=== PATIENT | female | born 1945 | race Caucasian/White ===

== ENCOUNTER 2020-06-22 18:20 | Inpatient (IN) | payer MEDICARE ==
[2020-06-22 19:32] LABS: BASOPHIL 0.3 % (0-2); EOSINOPHIL 1.1 % (0-7); HCT 41.3 % (37.0-47.0); HGB 12.3 g/dl (12.5-16.0); LYMPHOCYTE 17.1 % (15-48); MCH 25.9 pg (25.0-31.0); MCHC 29.8 g/dL (32.0-36.0); MCV 87.1 fL (78.0-100.0); MONOCYTE 10.5 % (0-12); MPV 10.6 fL (6.0-9.5); NEUTROPHIL 70.2 % (41-80); NRBC 0; PLT 361 K/uL (150-400); RBC 4.74 M/uL (4.20-5.40); RDW 16.2 % (11.5-14.0); RETICULOCYTE COUNT 1.8 % (1.0-2.0); WBC 11.3 K/uL (4.0-10.5)
[2020-06-22 19:36] LABS: INR 1.05 (0.9-1.2)
[2020-06-22 19:37] LABS: PTT 32.1 SECONDS (22.2-34.7)
[2020-06-22 19:38] LABS: D-DIMER 1.44 ug/mLFEU (0.00-0.41)
[2020-06-22 19:56] LABS: PRO-BNP 246 pg/mL (<450)
[2020-06-22 19:58] LABS: ALBUMIN 2.8 g/dL (3.4-5.0); BILIRUBIN - TOTAL 0.2 mg/dL (0.2-1.0); BUN/CREAT RATIO (CALC) 19.3 RATIO; C-REACTIVE PROTEIN 6.6 mg/dL (<=0.90); CREATININE 0.83 mg/dL (0.51-0.95); POTASSIUM 3.9 mmol/L (3.5-5.1); TOTAL PROTEIN 7.8 g/dL (6.4-8.2)
[2020-06-22 20:00] LABS: FLU B NEGATIVE B (NEGATIVE B)
[2020-06-22 20:12] LABS: LACTIC ACID 1.4 mmol/L (0.4-1.9)
[2020-06-23] MEDS ORDERED: ZOLOFT100 MG PO (00:28)
[2020-06-23] MEDS ORDERED: LASIX20 MG PO (00:28)
[2020-06-23] MEDS ORDERED: ZOCOR40 MG PO (00:28)
[2020-06-23] MEDS ORDERED: AMLODIPINE BESYL5 MG PO (00:28)
[2020-06-23] MEDS ORDERED: IBUPROFEN800 M1 PO (00:29)
[2020-06-23] MEDS ORDERED: KLOR-CON 1010 MEQ PO (00:29)
[2020-06-23 14:29] LABS: BILIRUBIN NEGATIVE (NEGATIVE); BLOOD TRACE-INTACT Ery/uL (NEGATIVE); CLARITY CLEAR (CLEAR); COLOR YELLOW (YELLOW); GLUCOSE (U) NORMAL (NORMAL); LEUKOCYTES 1+ Leu/uL (NEGATIVE); NITRITE NEGATIVE (NEGATIVE); PROTEIN NEGATIVE (NEGATIVE); UROBILINOGEN 0.2 mg/dL (0.2-1.0); pH 5.5 (5.0-9.0)
[2020-06-23 14:38] LABS: BACTERIA 1+; URINARY RBC RARE
[2020-06-24 05:03] LABS: BASOPHIL 0.2 % (0-2); HCT 40.8 % (37.0-47.0); HGB 11.9 g/dl (12.5-16.0); LYMPHOCYTE 15.6 % (15-48); MCH 25.4 pg (25.0-31.0); MCHC 29.2 g/dL (32.0-36.0); MCV 87.2 fL (78.0-100.0); MONOCYTE 9.8 % (0-12); MPV 10.4 fL (6.0-9.5); NRBC 0; PLT 324 K/uL (150-400); RBC 4.68 M/uL (4.20-5.40); RDW 16.3 % (11.5-14.0)
[2020-06-24 05:31] LABS: BUN/CREAT RATIO (CALC) 22.3 RATIO; CREATININE 0.94 mg/dL (0.51-0.95); POTASSIUM 3.6 mmol/L (3.5-5.1)
[2020-06-25] MEDS ORDERED: PANTOPRAZOLE SO40 MG PO (13:33)
[2020-06-25] MEDS ORDERED: AZITHROMYCIN250 MG PO (13:33)
[2020-06-25] MEDS ORDERED: PROVENTIL HFA6.7 GM INH (13:33)
[2020-06-25] MEDS ORDERED: FLORANEX TABLE1 EACH PO (13:33)
[2020-06-25] MEDS ORDERED: COREG 3.125M3.125 MG PO (13:33)
[2020-06-25] MEDS ORDERED: LASIX40 MG PO (13:33)
[2020-06-25] MEDS ORDERED: KLOR-CON 1010 MEQ PO (13:33)
[2020-06-25] MEDS ORDERED: CEFDINIR300 MG PO (13:33)
[2020-06-25] MEDS ORDERED: MEDROL 4MG DOSEP4 MG PO (13:33)
[2020-06-25] MEDS ORDERED: HOSPITAL BED XX (13:41)
--- NOTE | 2020-06-25 14:55 | NUR ---
06/25/2020 Ms. Corado has home 02, c-pap, w/c, rw, 3in1, and s.chair. She has requested a hospital bed. A referral was made to [facility] per [facility] order. A referral was made to [facility] for HH per patient choice.
== END 2020-06-25 16:20 | disposition home health service (06) | DRG 291 ==
LOC: FER 18:20 → FTCU 22:45
PROVIDERS: Emergency Medicine; Hospitalist; ADMIT Internal Medicine
DX: I11.0 Hypertensive heart disease with heart failure (principal); J18.9 Pneumonia, unspecified organism; J96.01 Acute respiratory failure with hypoxia; J44.0 Chronic obstructive pulmonary disease with (acute) lower respiratory infection; N39.0 Urinary tract infection, site not specified; J44.1 Chronic obstructive pulmonary disease with (acute) exacerbation; Z68.42 Body mass index [BMI] 45.0-49.9, adult; I50.33 Acute on chronic diastolic (congestive) heart failure; J20.9 Acute bronchitis, unspecified; Z77.22 Contact with and (suspected) exposure to environmental tobacco smoke (acute) (chronic); F32.9 Major depressive disorder, single episode, unspecified; E78.5 Hyperlipidemia, unspecified; Z20.828 Contact with and (suspected) exposure to other viral communicable diseases; G47.33 Obstructive sleep apnea (adult) (pediatric); E66.01 Morbid (severe) obesity due to excess calories; Z99.81 Dependence on supplemental oxygen; Z85.3 Personal history of malignant neoplasm of breast; Z79.899 Other long term (current) drug therapy
CPT/HCPCS: 36415; 36600; 71046; 80048; 80053; 80061; 81001; 82728; 82803; 83605; 83615; 83735; 83880; 84145; 84484; 85025; 85379; 85610; 85730; 86140; 87804; 87899; 93005; 94640; 94660; 96372; J0696; J1650; J1940; J7512; U0002

== ENCOUNTER 2021-06-07 18:21 | Inpatient (IN) | payer MEDICARE ==
[~2021-06-07] VITALS: Ht 157.5 cm; Wt 110.7 kg
[~2021-06-07 18:21] MED LIST: AMLODIPINE BESYL5 MG PO; AZITHROMYCIN250 MG PO; CEFDINIR300 MG PO; COREG 3.125M3.125 MG PO; FLORANEX TABLE1 EACH PO; HOSPITAL BED XX; IBUPROFEN800 M1 PO; KLOR-CON 1010 MEQ PO; LASIX20 MG PO; LASIX40 MG PO; MEDROL 4MG DOSEP4 MG PO; PANTOPRAZOLE SO40 MG PO; PROVENTIL HFA6.7 GM INH; ZOCOR40 MG PO; ZOLOFT100 MG PO
[2021-06-07 19:35] LABS: BASOPHIL 0.2 % (0-2); EOSINOPHIL 1.6 % (0-7); HCT 34.2 % (37.0-47.0); HGB 10.3 g/dl (12.5-16.0); LYMPHOCYTE 19.5 % (15-48); MCH 25.5 pg (25.0-31.0); MCHC 30.1 g/dL (32.0-36.0); MCV 84.7 fL (78.0-100.0); MONOCYTE 11.3 % (0-12); MPV 10.5 fL (6.0-9.5); NRBC 0; PLT 344 K/uL (150-400); RBC 4.04 M/uL (4.20-5.40); RDW 17.2 % (11.5-14.0); WBC 9.7 K/uL (4.0-10.5)
[2021-06-07 19:49] LABS: ALBUMIN 2.5 g/dL (3.4-5.0); BILIRUBIN - TOTAL 0.2 mg/dL (0.2-1.0); BUN/CREAT RATIO (CALC) 19.1 RATIO; C-REACTIVE PROTEIN 10.8 mg/dL (<=0.90); CREATININE 0.89 mg/dL (0.51-0.95); GLOBULIN (CALCULATION) 4.5 g/dL; POTASSIUM 3.4 mmol/L (3.5-5.1)
[2021-06-07 19:54] LABS: PRO-BNP 376 pg/mL (<450)
[2021-06-07 19:55] LABS: LACTIC ACID 0.5 mmol/L (0.4-1.9)
[2021-06-07 20:45] LABS: CORONAVIRUS 2019 SARS-COV-2 NEGATIVE (NEGATIVE); INFLUENZA A NAA NEGATIVE (NEGATIVE)
[2021-06-08 00:22] LABS: BILIRUBIN NEGATIVE (NEGATIVE); BLOOD TRACE-INTACT Ery/uL (NEGATIVE); CLARITY CLEAR (CLEAR); COLOR YELLOW (YELLOW); GLUCOSE (U) NORMAL (NORMAL); LEUKOCYTES 2+ Leu/uL (NEGATIVE); NITRITE NEGATIVE (NEGATIVE); PROTEIN NEGATIVE (NEGATIVE); UROBILINOGEN 0.2 mg/dL (0.2-1.0)
[2021-06-08 00:47] LABS: BACTERIA 1+; URINARY RBC RARE
[2021-06-08] MEDS ORDERED: LASIX40 MG PO (02:40)
[2021-06-08] MEDS ORDERED: ADVIL200 M1 PO (02:41)
[2021-06-08] MEDS ORDERED: KLOR-CON M 1010 MEQ PO (02:43)
[2021-06-08] MEDS ORDERED: VITAMIN D325 MC2 PO (02:45)
--- NOTE | 2021-06-08 03:17 | NUR ---
PATIENT'S MEDICATION IS LOCKED IN MEDICATION CART.
[2021-06-08 07:12] LABS: BASOPHIL 0.2 % (0-2); EOSINOPHIL 1.7 % (0-7); HCT 36.6 % (37.0-47.0); HGB 11.2 g/dl (12.5-16.0); LYMPHOCYTE 20.8 % (15-48); MCH 25.4 pg (25.0-31.0); MCHC 30.6 g/dL (32.0-36.0); MONOCYTE 11.1 % (0-12); NEUTROPHIL 65.9 % (41-80); NRBC 0; PLT 331 K/uL (150-400); RBC 4.41 M/uL (4.20-5.40); RDW 17.1 % (11.5-14.0); WBC 9.1 K/uL (4.0-10.5)
[2021-06-08 07:32] LABS: BUN/CREAT RATIO (CALC) 15.9 RATIO; CREATININE 0.88 mg/dL (0.51-0.95); POTASSIUM 3.1 mmol/L (3.5-5.1)
[2021-06-09 06:49] LABS: BASOPHIL 0.1 % (0-2); EOSINOPHIL 1.1 % (0-7); HCT 36.7 % (37.0-47.0); HGB 10.9 g/dl (12.5-16.0); LYMPHOCYTE 16.7 % (15-48); MCH 25.4 pg (25.0-31.0); MCHC 29.7 g/dL (32.0-36.0); MCV 85.5 fL (78.0-100.0); MONOCYTE 9.4 % (0-12); MPV 9.2 fL (6.0-9.5); NEUTROPHIL 72.2 % (41-80); NRBC 0; PLT 329 K/uL (150-400); RBC 4.29 M/uL (4.20-5.40); RDW 17.2 % (11.5-14.0); WBC 8.5 K/uL (4.0-10.5)
[2021-06-09 07:06] LABS: BUN/CREAT RATIO (CALC) 13.2 RATIO; CREATININE 0.91 mg/dL (0.51-0.95); MAGNESIUM 2.2 mg/dL (1.8-2.4); POTASSIUM 3.3 mmol/L (3.5-5.1)
[2021-06-10 06:01] LABS: BASOPHIL 0.1 % (0-2); EOSINOPHIL 2.5 % (0-7); HCT 33.6 % (37.0-47.0); MCH 25.3 pg (25.0-31.0); MCHC 29.8 g/dL (32.0-36.0); MCV 85.1 fL (78.0-100.0); MONOCYTE 9.6 % (0-12); MPV 9.9 fL (6.0-9.5); NEUTROPHIL 69.4 % (41-80); NRBC 0; PLT 302 K/uL (150-400); RBC 3.95 M/uL (4.20-5.40); RDW 17.1 % (11.5-14.0); WBC 7.7 K/uL (4.0-10.5)
[2021-06-10 06:20] LABS: BUN/CREAT RATIO (CALC) 8.6 RATIO; CREATININE 0.81 mg/dL (0.51-0.95); MAGNESIUM 1.9 mg/dL (1.8-2.4); POTASSIUM 3.6 mmol/L (3.5-5.1)
--- NOTE | 2021-06-10 19:36 | NUR ---
1250 - Pt to CT for interventional radiology procedure to drain abd/pelvic abscess. Pt states she has a hx of CHF, wears 2L NC at home, has an allergy to demerol. Pt denies the use of any blood thinners, midline noted to LISA. BP 129/93 (102), 85 HR, 97% 2L NC. 1257 - Pt positioned on CT table, [place] water treatment technician, Dr. Dickinson and this RN at bedside with patient, time out performed per water treatment technician, all in agreeance that this is the right patient and right procedure, pt also agrees. Pt c/o SOA when lying flat, O2 increased to 6L NC, pt states that in past she has had to be placed on NRB for any procedures that would require her to lie flat. BP 132/63 (90), 79 HR, 95% 6L NC. Pt c/o pain although local was utilized, VO obtained for 1mg IV ativan & 50mcg IV fentanyl. 1308 - 1mg IV ativan administered. 1310 - 50 mcg IV fentanyl administered. Pt reported a decrease in pain and is much more relaxed. 1320 - Pt O2 dropped to 87% on 6L NC, pt placed on NRB 15L, BP 138/65 (94), 81 HR, 99 % NRB. 1327 - Purulent, sangioneous drainage 4 mL noted from abscess. BP 144/68 (98), 86 HR, 99% NRB. Placement checked by CT scan. 1328 - Good placement, guide-wire placed and dilators utilized. 1338 - Drain placed and secured by water treatment technician. Pt tolerated procedure well. 1341 - BP 151/86 (109), 93 HR, 99% NRB. 1349 - Pt ready to be tx back to [facility] room, placed back on 2L NC, 96%. 1320
[2021-06-11 07:33] LABS: BASOPHIL 0.2 % (0-2); EOSINOPHIL 1.7 % (0-7); HCT 35.6 % (37.0-47.0); HGB 10.6 g/dl (12.5-16.0); LYMPHOCYTE 16.3 % (15-48); MCH 25.5 pg (25.0-31.0); MCHC 29.8 g/dL (32.0-36.0); MCV 85.8 fL (78.0-100.0); MONOCYTE 8.8 % (0-12); MPV 10.3 fL (6.0-9.5); NEUTROPHIL 72.7 % (41-80); NRBC 0; PLT 322 K/uL (150-400); RBC 4.15 M/uL (4.20-5.40); RDW 17.2 % (11.5-14.0)
[2021-06-11 08:01] LABS: CREATININE 0.83 mg/dL (0.51-0.95); MAGNESIUM 1.9 mg/dL (1.8-2.4); POTASSIUM 3.7 mmol/L (3.5-5.1)
--- NOTE | 2021-06-11 12:50 | NUR ---
06/11 Ms. Corado lives alone. She has 4 children. She has: CPAP, 02 at 2 L, portable, hospital bed, wc, 3in1, and s. chair. A referral was made to [facility] per patient choice.
[2021-06-11 15:07] LABS: BILIRUBIN NEGATIVE (NEGATIVE); BLOOD 1+ Ery/uL (NEGATIVE); COLOR YELLOW (YELLOW); GLUCOSE (U) NORMAL (NORMAL); LEUKOCYTES 2+ Leu/uL (NEGATIVE); NITRITE NEGATIVE (NEGATIVE); PROTEIN NEGATIVE (NEGATIVE); UROBILINOGEN 0.2 mg/dL (0.2-1.0)
[2021-06-11 15:10] LABS: CLARITY HAZY (CLEAR)
[2021-06-11 15:31] LABS: BACTERIA TRACE; CALCIUM OXALATE CRYSTALS MODERATE
[2021-06-11 15:32] LABS: SQUAMOUS EPITHELIAL CELLS 20-50; YEAST PRESENT
[2021-06-12 06:54] LABS: BASOPHIL 0.1 % (0-2); EOSINOPHIL 2.9 % (0-7); HCT 33.8 % (37.0-47.0); HGB 10.1 g/dl (12.5-16.0); LYMPHOCYTE 10.7 % (15-48); MCH 25.8 pg (25.0-31.0); MCHC 29.9 g/dL (32.0-36.0); MCV 86.2 fL (78.0-100.0); MONOCYTE 8.4 % (0-12); MPV 9.8 fL (6.0-9.5); NEUTROPHIL 76.9 % (41-80); NRBC 0; PLT 299 K/uL (150-400); RBC 3.92 M/uL (4.20-5.40); RDW 17.4 % (11.5-14.0); WBC 10.2 K/uL (4.0-10.5)
[2021-06-12 07:25] LABS: BUN/CREAT RATIO (CALC) 10.4 RATIO; CREATININE 0.96 mg/dL (0.51-0.95); POTASSIUM 3.9 mmol/L (3.5-5.1)
--- NOTE | 2021-06-12 12:17 | NUR ---
PER ORDERS PT AMBULATED IN SOTO WITH ON ROOM AIR AND CHECK O2 SATS. PT AT REST O2 95% ON ROOM AIR. PT O2 SAT IN SOTO WAY 80%
--- NOTE | 2021-06-12 16:48 | NUR ---
06/12 [facility] was notified of discharge. Report given to MS VANESSA Andrews.
[2021-06-12] MEDS ORDERED: AUGMENTIN 875-1 EACH PO (16:56)
== END 2021-06-12 18:27 | disposition home health service (06) | DRG 391 ==
LOC: FER 18:21 → FMS 23:51
PROVIDERS: Emergency Medicine Emergency Medical Services; Nurse Practitioner; Nurse Practitioner Acute Care; ADMIT Internal Medicine
PROC: 05HY33Z Insertion of Infusion Device into Upper Vein, Percutaneous Approach (ICD-10-PCS; principal; 2021-06-07)
PROC: 0W9J30Z Drainage of Pelvic Cavity with Drainage Device, Percutaneous Approach (ICD-10-PCS; 2021-06-10)
DX: K57.20 Diverticulitis of large intestine with perforation and abscess without bleeding (principal); J96.21 Acute and chronic respiratory failure with hypoxia; I50.33 Acute on chronic diastolic (congestive) heart failure; J18.9 Pneumonia, unspecified organism; J98.11 Atelectasis; I13.0 Hypertensive heart and chronic kidney disease with heart failure and stage 1 through stage 4 chronic kidney disease, or unspecified chronic kidney disease; B37.49 Other urogenital candidiasis; E66.2 Morbid (severe) obesity with alveolar hypoventilation; Z68.41 Body mass index [BMI] 40.0-44.9, adult; Z20.822 Contact with and (suspected) exposure to COVID-19; Z66 Do not resuscitate; E78.5 Hyperlipidemia, unspecified; E87.6 Hypokalemia; F32.A Depression, unspecified; D64.9 Anemia, unspecified; N18.2 Chronic kidney disease, stage 2 (mild); Z99.81 Dependence on supplemental oxygen; Z87.440 Personal history of urinary (tract) infections; Z85.3 Personal history of malignant neoplasm of breast; Z96.653 Presence of artificial knee joint, bilateral; Z90.49 Acquired absence of other specified parts of digestive tract; Z90.710 Acquired absence of both cervix and uterus; I25.2 Old myocardial infarction; Z90.12 Acquired absence of left breast and nipple; Z80.1 Family history of malignant neoplasm of trachea, bronchus and lung; Z82.49 Family history of ischemic heart disease and other diseases of the circulatory system; Z79.899 Other long term (current) drug therapy; Z88.8 Allergy status to other drugs, medicaments and biological substances
CPT/HCPCS: 36415; 36600; 71045; 71046; 71275; 75989; 80048; 80053; 81001; 82803; 83605; 83735; 83880; 84145; 84484; 85025; 85379; 86140; 87040; 87088; 93005; 94010; 94640; C9113; G0378; J0696; J1170; J1642; J1650; J1940; J2001; J2060; J2543; J3010; J3480; J7030; Q9967; U0002

== ENCOUNTER 2021-07-07 13:20 | Inpatient (IN) | payer MEDICARE ==
[~2021-07-07] VITALS: Ht 157.5 cm; Wt 114.8 kg
[~2021-07-07 13:20] MED LIST changes: +ADVIL200 M1 PO; +AUGMENTIN 875-1 EACH PO; +KLOR-CON M 1010 MEQ PO; +VITAMIN D325 MC2 PO
[2021-07-07 15:22] LABS: BASOPHIL 0.3 % (0-2); EOSINOPHIL 1.2 % (0-7); HCT 37.7 % (37.0-47.0); HGB 11.5 g/dl (12.5-16.0); LYMPHOCYTE 20.9 % (15-48); MCH 25.1 pg (25.0-31.0); MCHC 30.5 g/dL (32.0-36.0); MCV 82.3 fL (78.0-100.0); MONOCYTE 9.2 % (0-12); NEUTROPHIL 68.1 % (41-80); NRBC 0; PLT 346 K/uL (150-400); RBC 4.58 M/uL (4.20-5.40); RDW 17.4 % (11.5-14.0); WBC 9.8 K/uL (4.0-10.5)
[2021-07-07 15:41] LABS: BUN/CREAT RATIO (CALC) 22.2 RATIO; CREATININE 0.81 mg/dL (0.51-0.95); POTASSIUM 3.8 mmol/L (3.5-5.1)
[2021-07-07 15:55] LABS: BILIRUBIN NEGATIVE (NEGATIVE); BLOOD TRACE-INTACT Ery/uL (NEGATIVE); CLARITY CLEAR (CLEAR); GLUCOSE (U) TRACE mg/dL (NORMAL); LEUKOCYTES NEGATIVE Leu/uL (NEGATIVE); NITRITE POSITIVE (NEGATIVE); PROTEIN 2+ mg/dL (NEGATIVE); SPECIFIC GRAVITY 1.025 (1.001-1.030); pH 5.5 (5.0-9.0)
[2021-07-07 15:56] LABS: COLOR ORANGE (YELLOW)
[2021-07-07 16:03] LABS: BACTERIA 1+; URINARY RBC RARE
[2021-07-07 20:41] LABS: LACTIC ACID 0.4 mmol/L (0.4-1.9)
[2021-07-08 07:01] LABS: BASOPHIL 0.2 % (0-2); EOSINOPHIL 3.7 % (0-7); HGB 10.2 g/dl (12.5-16.0); LYMPHOCYTE 26.3 % (15-48); MCH 25.1 pg (25.0-31.0); MCV 83.7 fL (78.0-100.0); MONOCYTE 10.7 % (0-12); MPV 9.8 fL (6.0-9.5); NEUTROPHIL 58.9 % (41-80); NRBC 0; PLT 279 K/uL (150-400); RBC 4.06 M/uL (4.20-5.40); RDW 17.3 % (11.5-14.0)
[2021-07-08 07:24] LABS: BUN/CREAT RATIO (CALC) 15.7 RATIO; CREATININE 0.89 mg/dL (0.51-0.95); POTASSIUM 3.9 mmol/L (3.5-5.1)
[2021-07-08 13:00] LABS: INR 1.13 (0.9-1.2); PROTHROMBIN TIME 13.9 SECONDS (11.8-13.4)
[2021-07-08 17:17] LABS: IRON % SATURATION 15.3 %SAT (20-50)
--- NOTE | 2021-07-08 17:36 | NUR ---
1326 - INFORMED CONSENT OBTAINED FROM PT PER DR. ROSENBAUM. 1335 - PT AXOX4, POSITIONED ONTO CT TABLE AND INITIAL V/S OBTAINED, BP 135/71(96), 81 HR, 13 RR, 95% 2L NC, SR ON MONITOR WITH UNIFOCAL PVC's. PT O2 INCREASED TO 4L NC DUE TO INCREASED SOA WHILE LYING SUPINE, PT C/O PAIN TO LUMBAR SPINE. MD AWARE. 1348 - TIME-OUT PERFORMED PER CRYSTAL (REGISTERED NURSE STEP DOWN), PT AND STAFF IN AGREEANCE OF PROCEDURE. 1350 - MD EXPLAINED STEPS HE WENT ALONG, LOCALIZED AREA OF INSERTION NEEDLE INSERTED, IMAGING PERFORMED TO CHECK TRAJECTORY. 1354 - 127/61(88), 85 HR, 95% 4L NC, 13 RR, PT TOLERATING PROCEDURE WELL. 1405 - 135/80(102), 84 HR, 17 RR, 96% 4L NC. 1412 - AFTER ADVANCEMENT INTO ABSCESS POCKET MD ATTEMPTED TO OBTAIN SPECIMEN, UNSUCCESSFUL, IMAGING PERFORMED. 1417 - ADVANCEMENT INTO ABSCESS SUCCESSFUL AND SPECIMEN OBTAINED, THICK PURULENT DRAINAGE NOTED, AEROBIC/ANAEROBIC SPECIMENS COLLECTED. GUIDEWIRE ADVANCED TO PREPARE FOR DRAIN PLACEMENT. IMAGING PERFORMED TO ENSURE ADEQUATE COILING IN ABSCESS POCKET. 1425 - DILATORS USED AND IMAGING PERFORMED TO VERIFY PLACEMENT. 127/71(94), 86 HR, 22 RR, 95% 4L NC. PT CONTINUES TO TOLERATE WELL. 1427 - DRAIN PIECE INSERTED OVER DILATOR AND EXTERNAL DRAIN APPLIED AND SECURED. 127/71(94), 27 RR, 86 HR, 94% 4L NC. 1430 - PT ASSISTED TO DANGLE ON EDGE OF CT TABLE PT PLACED ON 2L NC. PT TOLERATED WELL. 130/65(93), 88 HR, 15 RR, 95% 2L NC. 1435 - PT TO BE TRANSPORTED BACK TO UNIT PER REGISTERED NURSE STEP DOWN.
[2021-07-09 06:07] LABS: BASOPHIL 0.1 % (0-2); EOSINOPHIL 0.9 % (0-7); HCT 34.7 % (37.0-47.0); HGB 10.3 g/dl (12.5-16.0); MCH 25.1 pg (25.0-31.0); MCHC 29.7 g/dL (32.0-36.0); MCV 84.6 fL (78.0-100.0); MONOCYTE 5.3 % (0-12); MPV 10.2 fL (6.0-9.5); NEUTROPHIL 79.5 % (41-80); NRBC 0; PLT 290 K/uL (150-400); RDW 17.4 % (11.5-14.0)
[2021-07-09 06:08] LABS: WBC 13.7 K/uL (4.0-10.5)
[2021-07-09 06:32] LABS: BUN/CREAT RATIO (CALC) 11.8 RATIO; CREATININE 1.02 mg/dL (0.51-0.95); POTASSIUM 3.7 mmol/L (3.5-5.1)
--- NOTE | 2021-07-09 16:06 | NUR ---
08/09/21 Ms. Corado lives alone, She has 4 supportive children. Ms. Corado reports to be I with ADLS and IADLS. Her children rune errand, provide transportation, and go to the grocery. Ms. Corado has a rw, codi, 02 at 2L, 3in1, s. chair, wc, and hospital bed. [facility] is current and have been notified of admission via [facility]. Please notifiy [facility] at [phone] if patient discharges over the weekend.
[2021-07-10 06:50] LABS: BASOPHIL 0.2 % (0-2); EOSINOPHIL 0.5 % (0-7); HCT 36.8 % (37.0-47.0); LYMPHOCYTE 16.6 % (15-48); MCH 25.3 pg (25.0-31.0); MCHC 29.9 g/dL (32.0-36.0); MCV 84.8 fL (78.0-100.0); MONOCYTE 6.5 % (0-12); MPV 9.9 fL (6.0-9.5); NEUTROPHIL 75.4 % (41-80); NRBC 0; PLT 281 K/uL (150-400); RBC 4.34 M/uL (4.20-5.40); RDW 17.3 % (11.5-14.0); RETICULOCYTE COUNT 1.1 % (1.0-2.0); WBC 16.8 K/uL (4.0-10.5)
[2021-07-10 07:17] LABS: IRON % SATURATION 5.6 %SAT (20-50)
[2021-07-10 07:55] LABS: BUN/CREAT RATIO (CALC) 13.3 RATIO; CREATININE 1.13 mg/dL (0.51-0.95); POTASSIUM 3.4 mmol/L (3.5-5.1)
[2021-07-10 08:40] LABS: FOLIC ACID (SERUM) 16.1 ng/mL (8.6-58.9)
[2021-07-10 15:12] LABS: BILIRUBIN NEGATIVE (NEGATIVE); BLOOD NEGATIVE Ery/uL (NEGATIVE); CLARITY CLEAR (CLEAR); COLOR YELLOW (YELLOW); GLUCOSE (U) NORMAL (NORMAL); LEUKOCYTES NEGATIVE Leu/uL (NEGATIVE); NITRITE NEGATIVE (NEGATIVE); PROTEIN TRACE (LOW) mg/dL (NEGATIVE); SPECIFIC GRAVITY 1.015 (1.001-1.030); UROBILINOGEN 0.2 mg/dL (0.2-1.0); pH 6.5 (5.0-9.0)
[2021-07-10 15:31] LABS: BACTERIA TRACE; MUCOUS TRACE
[2021-07-10 21:31] LABS: HGB 11.1 g/dl (12.5-16.0); MCH 25.3 pg (25.0-31.0); MCHC 30.8 g/dL (32.0-36.0); MPV 10.1 fL (6.0-9.5); RBC 4.39 M/uL (4.20-5.40); RDW 17.3 % (11.5-14.0); WBC 24.6 K/uL (4.0-10.5)
[2021-07-10 21:49] LABS: CREATININE 1.36 mg/dL (0.51-0.95); POTASSIUM 3.3 mmol/L (3.5-5.1)
[2021-07-11 04:18] LABS: BUN/CREAT RATIO (CALC) 12.1 RATIO; CREATININE 1.4 mg/dL (0.51-0.95); MAGNESIUM 1.7 mg/dL (1.8-2.4); POTASSIUM 3.4 mmol/L (3.5-5.1)
[2021-07-11 04:19] LABS: BASOPHIL 0.2 % (0-2); EOSINOPHIL 0.8 % (0-7); HCT 35.1 % (37.0-47.0); HGB 11.2 g/dl (12.5-16.0); LYMPHOCYTE 5.8 % (15-48); MCHC 31.9 g/dL (32.0-36.0); MCV 81.6 fL (78.0-100.0); MONOCYTE 5.1 % (0-12); MPV 10.3 fL (6.0-9.5); NEUTROPHIL 87.5 % (41-80); NRBC 0; PLT 347 K/uL (150-400); RDW 17.4 % (11.5-14.0); WBC 22.1 K/uL (4.0-10.5)
[2021-07-11 13:00] LABS: POTASSIUM 3.8 mmol/L (3.5-5.1)
[2021-07-11 13:02] LABS: MAGNESIUM 2.4 mg/dL (1.8-2.4)
[2021-07-12 06:17] LABS: BASOPHIL 0.1 % (0-2); EOSINOPHIL 1.2 % (0-7); HCT 27.2 % (37.0-47.0); HGB 8.7 g/dl (12.5-16.0); LYMPHOCYTE 8.5 % (15-48); MCH 25.6 pg (25.0-31.0); MPV 10.2 fL (6.0-9.5); NEUTROPHIL 83.2 % (41-80); NRBC 0; PLT 303 K/uL (150-400); RDW 17.2 % (11.5-14.0); WBC 16.8 K/uL (4.0-10.5)
[2021-07-12 06:49] LABS: ALBUMIN 1.4 g/dL (3.4-5.0); BILIRUBIN - TOTAL 0.5 mg/dL (0.2-1.0); BUN/CREAT RATIO (CALC) 21.5 RATIO; CREATININE 1.07 mg/dL (0.51-0.95); GLOBULIN (CALCULATION) 3.1 g/dL; MAGNESIUM 2.2 mg/dL (1.8-2.4); PHOSPHORUS 2.5 mg/dL (2.6-4.7); POTASSIUM 3.5 mmol/L (3.5-5.1); TOTAL PROTEIN 4.5 g/dL (6.4-8.2)
[2021-07-12 18:31] LABS: BASOPHIL 0.1 % (0-2); EOSINOPHIL 1.9 % (0-7); HCT 23.4 % (37.0-47.0); HGB 7.3 g/dl (12.5-16.0); LYMPHOCYTE 8.9 % (15-48); MCH 25.3 pg (25.0-31.0); MCHC 31.2 g/dL (32.0-36.0); MCV 81.3 fL (78.0-100.0); MPV 10.1 fL (6.0-9.5); NEUTROPHIL 83.3 % (41-80); NRBC 0; PLT 271 K/uL (150-400); RBC 2.88 M/uL (4.20-5.40); RDW 17.3 % (11.5-14.0); WBC 13.5 K/uL (4.0-10.5)
[2021-07-12 18:47] LABS: BUN/CREAT RATIO (CALC) 20.4 RATIO; CREATININE 0.98 mg/dL (0.51-0.95); POTASSIUM 3.3 mmol/L (3.5-5.1)
[2021-07-12 21:49] LABS: LACTIC ACID 0.7 mmol/L (0.4-1.9)
[2021-07-13 06:22] LABS: BASOPHIL 0.2 % (0-2); EOSINOPHIL 2.7 % (0-7); HCT 29.8 % (37.0-47.0); LYMPHOCYTE 9.9 % (15-48); MCHC 31.9 g/dL (32.0-36.0); MCV 81.4 fL (78.0-100.0); MONOCYTE 4.7 % (0-12); MPV 10.2 fL (6.0-9.5); NRBC 0; PLT 318 K/uL (150-400); RBC 3.66 M/uL (4.20-5.40); RDW 17.1 % (11.5-14.0); WBC 17.6 K/uL (4.0-10.5)
[2021-07-13 06:23] LABS: HGB 9.5 g/dl (12.5-16.0)
[2021-07-13 07:15] LABS: ALBUMIN 1.3 g/dL (3.4-5.0); BILIRUBIN - TOTAL 0.4 mg/dL (0.2-1.0); BUN/CREAT RATIO (CALC) 20.2 RATIO; CREATININE 0.94 mg/dL (0.51-0.95); GLOBULIN (CALCULATION) 4.3 g/dL; MAGNESIUM 2.1 mg/dL (1.8-2.4); PHOSPHORUS 2.5 mg/dL (2.6-4.7); POTASSIUM 3.5 mmol/L (3.5-5.1); TOTAL PROTEIN 5.6 g/dL (6.4-8.2)
[2021-07-14 06:01] LABS: BASOPHIL 0.3 % (0-2); EOSINOPHIL 3.8 % (0-7); HCT 28.1 % (37.0-47.0); HGB 8.8 g/dl (12.5-16.0); LYMPHOCYTE 12.8 % (15-48); MCH 25.9 pg (25.0-31.0); MCHC 31.3 g/dL (32.0-36.0); MCV 82.6 fL (78.0-100.0); MONOCYTE 6.2 % (0-12); MPV 10.4 fL (6.0-9.5); NEUTROPHIL 75.8 % (41-80); NRBC 0; PLT 326 K/uL (150-400); RDW 17.2 % (11.5-14.0); WBC 11.4 K/uL (4.0-10.5)
[2021-07-14 06:12] LABS: ALBUMIN 1.2 g/dL (3.4-5.0); BILIRUBIN - TOTAL 0.3 mg/dL (0.2-1.0); BUN/CREAT RATIO (CALC) 21.8 RATIO; CREATININE 0.78 mg/dL (0.51-0.95); MAGNESIUM 2.4 mg/dL (1.8-2.4); PHOSPHORUS 2.4 mg/dL (2.6-4.7); POTASSIUM 3.6 mmol/L (3.5-5.1); TOTAL PROTEIN 5.2 g/dL (6.4-8.2)
[2021-07-14 19:19] LABS: BUN/CREAT RATIO (CALC) 20.3 RATIO; CREATININE 0.74 mg/dL (0.51-0.95); POTASSIUM 4.2 mmol/L (3.5-5.1)
[2021-07-15 06:07] LABS: BASOPHIL 0.2 % (0-2); EOSINOPHIL 4.2 % (0-7); HGB 9.2 g/dl (12.5-16.0); LYMPHOCYTE 13.9 % (15-48); MCH 26.3 pg (25.0-31.0); MCHC 31.7 g/dL (32.0-36.0); MCV 82.9 fL (78.0-100.0); MONOCYTE 8.3 % (0-12); MPV 10.6 fL (6.0-9.5); NEUTROPHIL 71.5 % (41-80); NRBC 0; PLT 341 K/uL (150-400); RDW 17.2 % (11.5-14.0); WBC 10.4 K/uL (4.0-10.5)
[2021-07-15 06:28] LABS: ALBUMIN 1.2 g/dL (3.4-5.0); BILIRUBIN - TOTAL 0.2 mg/dL (0.2-1.0); BUN/CREAT RATIO (CALC) 19.5 RATIO; CREATININE 0.77 mg/dL (0.51-0.95); GLOBULIN (CALCULATION) 4.2 g/dL; MAGNESIUM 2.1 mg/dL (1.8-2.4); PHOSPHORUS 2.8 mg/dL (2.6-4.7); POTASSIUM 3.7 mmol/L (3.5-5.1); TOTAL PROTEIN 5.4 g/dL (6.4-8.2)
[2021-07-15 13:06] LABS: BILIRUBIN NEGATIVE (NEGATIVE); BLOOD NEGATIVE Ery/uL (NEGATIVE); CLARITY CLEAR (CLEAR); COLOR YELLOW (YELLOW); GLUCOSE (U) NORMAL (NORMAL); LEUKOCYTES NEGATIVE Leu/uL (NEGATIVE); NITRITE NEGATIVE (NEGATIVE); PROTEIN NEGATIVE (NEGATIVE); UROBILINOGEN 0.2 mg/dL (0.2-1.0)
--- NOTE | 2021-07-15 13:46 | NUR ---
PATIENT TRANSPORTED TO CT VIA BED ON DISPATCHER SHIP PILOT, RT BAGGING PATIETN WITH AMBU BAG, VENT TRANSPORTED TO CT. PATIENT TOLERATED WELL. PATIENT PLACED ON VENT FOR CT TEST. REMOVED FROM VENT POST TEST, AND TRANSPORTED BACK TO FLOOR VIA 2 RN'S AND RT. PATIENTS VITALS STABLE THROUGHOUT CT TEST. VITALS WHEN RETURNED TO FLOOR FOLLOWS: BP 108/47 (67), HR 57, O2 100% ON VENT FIO2 40%. PATIENT TOLERATED TRANSPORT WELL.
[2021-07-16 05:42] LABS: BASOPHIL 0.4 % (0-2); EOSINOPHIL 5.2 % (0-7); HCT 30.9 % (37.0-47.0); HGB 9.8 g/dl (12.5-16.0); MCH 26.1 pg (25.0-31.0); MCHC 31.7 g/dL (32.0-36.0); MCV 82.2 fL (78.0-100.0); MONOCYTE 6.7 % (0-12); MPV 10.4 fL (6.0-9.5); NEUTROPHIL 73.6 % (41-80); NRBC 0; PLT 379 K/uL (150-400); RBC 3.76 M/uL (4.20-5.40); RDW 17.3 % (11.5-14.0); WBC 12.1 K/uL (4.0-10.5)
[2021-07-16 06:10] LABS: ALBUMIN 1.3 g/dL (3.4-5.0); BILIRUBIN - TOTAL 0.2 mg/dL (0.2-1.0); CREATININE 0.68 mg/dL (0.51-0.95); GLOBULIN (CALCULATION) 4.4 g/dL; MAGNESIUM 1.9 mg/dL (1.8-2.4); PHOSPHORUS 2.9 mg/dL (2.6-4.7); POTASSIUM 3.4 mmol/L (3.5-5.1); TOTAL PROTEIN 5.7 g/dL (6.4-8.2)
[2021-07-16 14:41] LABS: CREATININE 0.73 mg/dL (0.51-0.95); POTASSIUM 4.2 mmol/L (3.5-5.1)
[2021-07-17 03:42] LABS: BASOPHIL 0.2 % (0-2); EOSINOPHIL 5.1 % (0-7); HGB 9.2 g/dl (12.5-16.0); MCH 26.1 pg (25.0-31.0); MCHC 31.7 g/dL (32.0-36.0); MCV 82.4 fL (78.0-100.0); MONOCYTE 8.2 % (0-12); MPV 10.2 fL (6.0-9.5); NEUTROPHIL 74.3 % (41-80); NRBC 0; PLT 382 K/uL (150-400); RBC 3.52 M/uL (4.20-5.40); RDW 17.5 % (11.5-14.0); WBC 11.1 K/uL (4.0-10.5)
[2021-07-17 03:58] LABS: BUN/CREAT RATIO (CALC) 26.9 RATIO; CREATININE 0.67 mg/dL (0.51-0.95); POTASSIUM 3.6 mmol/L (3.5-5.1)
--- NOTE | 2021-07-18 13:54 | NUR ---
07/18/21 Therapy has recommended SNF. Ms. Corado and her daughter have agreed to SNF placement. Referrals have been made to pt / family choices of [facility], [facility], and [facility].
[2021-07-19 07:25] LABS: BASOPHIL 0.5 % (0-2); HCT 32.6 % (37.0-47.0); HGB 9.8 g/dl (12.5-16.0); LYMPHOCYTE 16.7 % (15-48); MCHC 30.1 g/dL (32.0-36.0); MONOCYTE 10.8 % (0-12); MPV 10.7 fL (6.0-9.5); NEUTROPHIL 61.4 % (41-80); NRBC 0; PLT 452 K/uL (150-400); RBC 3.77 M/uL (4.20-5.40); RDW 18.1 % (11.5-14.0)
[2021-07-19 07:30] LABS: MCV 86.5 fL (78.0-100.0)
[2021-07-19 08:01] LABS: BUN/CREAT RATIO (CALC) 24.3 RATIO; CREATININE 0.74 mg/dL (0.51-0.95)
--- NOTE | 2021-07-19 12:16 | NUR ---
07/19/21 [facility] has accepted Ms. Corado for today. Her daughter, Delphine Diggs, , has agreed to transport. However, Ms. Diggs will not be available until this evening. Ms. Diggs will call her sister to see if she can transport at an earlier time. - Dr. Montanez was informed that a new COVID test is required. - Please fax the DS to: [phone] and call report to: [phone].
[2021-07-19] MEDS ORDERED: NORCO 5-325 TA1 EACH PO (12:27)
[2021-07-19] MEDS ORDERED: FOLIC ACID1 MG PO (12:27)
[2021-07-19] MEDS ORDERED: PANTOPRAZOLE SO40 MG PO (12:27)
[2021-07-22] MEDS ORDERED: BACTRIM DS TAB1 EACH PO (12:01)
== END 2021-07-19 17:30 | DRG 853 ==
LOC: FER 13:20 → FTCU 07-08 07:53 → FMS 07-08 07:53 → FICU 07-10 14:33 → FMS 07-17 09:32
PROVIDERS: Allergy & Immunology; Hospitalist; Internal Medicine; Nurse Practitioner; Nurse Practitioner Family; Student in an Organized Health Care Education/Training Program; ADMIT Family Medicine
PROC: 0W9G30Z Drainage of Peritoneal Cavity with Drainage Device, Percutaneous Approach (ICD-10-PCS; 2021-07-09)
PROC: 0W9J0ZZ Drainage of Pelvic Cavity, Open Approach (ICD-10-PCS; 2021-07-10)
PROC: 0DTJ0ZZ Resection of Appendix, Open Approach (ICD-10-PCS; 2021-07-10)
PROC: 3E033XZ Introduction of Vasopressor into Peripheral Vein, Percutaneous Approach (ICD-10-PCS; 2021-07-10)
PROC: B24BZZZ Ultrasonography of Heart with Aorta (ICD-10-PCS; 2021-07-10)
PROC: 5A1955Z Respiratory Ventilation, Greater than 96 Consecutive Hours (ICD-10-PCS; 2021-07-10)
PROC: 0DQH0ZZ Repair Cecum, Open Approach (ICD-10-PCS; 2021-07-10)
PROC: 0DTN0ZZ Resection of Sigmoid Colon, Open Approach (ICD-10-PCS; principal; 2021-07-10 13:45)
PROC: 0DNW0ZZ Release Peritoneum, Open Approach (ICD-10-PCS; 2021-07-10 13:45)
PROC: 0DJD4ZZ Inspection of Lower Intestinal Tract, Percutaneous Endoscopic Approach (ICD-10-PCS; 2021-07-10 13:45)
PROC: 0D1N0Z4 Bypass Sigmoid Colon to Cutaneous, Open Approach (ICD-10-PCS; 2021-07-10 13:45)
PROC: 30233N1 Transfusion of Nonautologous Red Blood Cells into Peripheral Vein, Percutaneous Approach (ICD-10-PCS; 2021-07-14)
PROC: 3E0336Z Introduction of Nutritional Substance into Peripheral Vein, Percutaneous Approach (ICD-10-PCS; 2021-07-15)
DX: A41.51 Sepsis due to Escherichia coli [E. coli] (principal); R65.21 Severe sepsis with septic shock; K35.33 Acute appendicitis with perforation, localized peritonitis, and gangrene, with abscess; J96.21 Acute and chronic respiratory failure with hypoxia; K57.20 Diverticulitis of large intestine with perforation and abscess without bleeding; N30.00 Acute cystitis without hematuria; I50.30 Unspecified diastolic (congestive) heart failure; I13.0 Hypertensive heart and chronic kidney disease with heart failure and stage 1 through stage 4 chronic kidney disease, or unspecified chronic kidney disease; J98.11 Atelectasis; E87.3 Alkalosis; K91.71 Accidental puncture and laceration of a digestive system organ or structure during a digestive system procedure; E78.5 Hyperlipidemia, unspecified; D50.9 Iron deficiency anemia, unspecified; I95.9 Hypotension, unspecified; I25.10 Atherosclerotic heart disease of native coronary artery without angina pectoris; E66.01 Morbid (severe) obesity due to excess calories; Z20.822 Contact with and (suspected) exposure to COVID-19; Z96.653 Presence of artificial knee joint, bilateral; N18.30 Chronic kidney disease, stage 3 unspecified; G47.33 Obstructive sleep apnea (adult) (pediatric); Z99.81 Dependence on supplemental oxygen; Z85.3 Personal history of malignant neoplasm of breast; Z90.710 Acquired absence of both cervix and uterus; Z90.49 Acquired absence of other specified parts of digestive tract; Z88.8 Allergy status to other drugs, medicaments and biological substances; Z82.49 Family history of ischemic heart disease and other diseases of the circulatory system; Z98.890 Other specified postprocedural states; Z80.1 Family history of malignant neoplasm of trachea, bronchus and lung; Z78.1 Physical restraint status; Y83.8 Other surgical procedures as the cause of abnormal reaction of the patient, or of later complication, without mention of misadventure at the time of the procedure
CPT/HCPCS: 36415; 36430; 36600; 70450; 71045; 71260; 75989; 80048; 80053; 81001; 81003; 82570; 82607; 82746; 82803; 82962; 83540; 83550; 83605; 83735; 83880; 84100; 84132; 84145; 85025; 85610; 86850; 86900; 86901; 86922; 87040; 87070; 87075; 87077; 87088; 87186; 87205; 94002; 94640; 97162; 97166; 97530-GP; 97535; C1751; C9113; G0378; J0610; J0692; J1170; J1642; J1650; J1885; J1940; J2185; J2250; J2370; J2405; J2543; J2704; J2916; J3010; J3430; J3475; J3480; J7030; J7040; J7050; J7060; J7120; P9016; Q9967; U0002

== ENCOUNTER 2022-01-03 09:31 | Emergency (ER) | payer MEDICARE ==
[~2022-01-03 09:31] MED LIST changes: +BACTRIM DS TAB1 EACH PO; +FOLIC ACID1 MG PO; +NORCO 5-325 TA1 EACH PO
[2022-01-03 10:48] LABS: BASOPHIL 0.2 % (0-2); EOSINOPHIL 1.2 % (0-7); HCT 35.1 % (37.0-47.0); HGB 10.9 g/dl (12.5-16.0); LYMPHOCYTE 13.5 % (15-48); MCH 27.2 pg (25.0-31.0); MCHC 31.1 g/dL (32.0-36.0); MCV 87.5 fL (78.0-100.0); MONOCYTE 8.3 % (0-12); MPV 10.9 fL (6.0-9.5); NEUTROPHIL 76.3 % (41-80); NRBC 0; PLT 318 K/uL (150-400); RBC 4.01 M/uL (4.20-5.40); WBC 12.5 K/uL (4.0-10.5)
[2022-01-03 10:51] LABS: INR 1.12 (0.9-1.2); PROTHROMBIN TIME 14.1 SECONDS (11.9-13.9); PTT 35.2 SECONDS (24.9-34.6)
[2022-01-03 11:01] LABS: CKMB 0.8 ng/mL (0.0-3.6)
[2022-01-03 11:03] LABS: ALBUMIN 2.6 g/dL (3.4-5.0); BILIRUBIN - TOTAL 0.3 mg/dL (0.2-1.0); CREATININE 0.91 mg/dL (0.51-0.95); GLOBULIN (CALCULATION) 4.6 g/dL; POTASSIUM 3.8 mmol/L (3.5-5.1); TOTAL PROTEIN 7.2 g/dL (6.4-8.2)
[2022-01-03 11:16] LABS: LACTIC ACID 0.8 mmol/L (0.4-1.9)
== END 2022-01-03 14:26 | disposition home or self-care (01) ==
LOC: FER 09:31
PROVIDERS: Emergency Medicine
DX: I11.0 Hypertensive heart disease with heart failure (principal); I50.30 Unspecified diastolic (congestive) heart failure; Z20.822 Contact with and (suspected) exposure to COVID-19; Z88.5 Allergy status to narcotic agent
CPT/HCPCS: 36415; 36600; 71045; 80053; 82553; 82803; 83605; 83880; 84484; 85025; 85610; 85730; 93005; J1940; U0002